=== PATIENT | male | born 1975 | race Caucasian/White ===

== ENCOUNTER 2019-07-16 07:19 | Emergency (ER) | payer MEDICAID, OTHER ==
[~2019-07-16] VITALS: Ht 182.9 cm; Wt 70.0 kg
[~2019-07-16 07:19] MED LIST: CLOT24CR TOP
--- NOTE | 2019-07-16 08:08 | NUR ---
Called [facility]. Case #[id number].
[2019-07-16] MEDS ORDERED: TETanus/Pertussis (Acell)/Diphther VAC/PF (Tdap-Adult) 0.5ml syringe IM ONE (08:45)
[2019-07-16] MEDS ORDERED: LIDOcaine 1% w/EPI 1:200,000 injection 10mL vial IM ONE (08:45)
[2019-07-16] MEDS ORDERED: LIDOcaine 1% W/epiNEPHrine 1:200,000 10ml vial IJ ONE (08:50)
--- NOTE | 2019-07-16 08:50 | NUR ---
pt out to [place] via [place] with [employer]
--- NOTE | 2019-07-16 09:06 | NUR ---
pt returns from [place]
[2019-07-16 10:08] VITALS: BP 128/91
== END 2019-07-16 10:10 | disposition home or self-care (01) ==
LOC: ER 07:19
DX: S01.01XA Laceration without foreign body of scalp, initial encounter (principal); F12.90 Cannabis use, unspecified, uncomplicated; F17.200 Nicotine dependence, unspecified, uncomplicated; Z60.2 Problems related to living alone; Z56.0 Unemployment, unspecified; Y04.2XXA Assault by strike against or bumped into by another person, initial encounter; Y93.89 Activity, other specified; Y92.89 Other specified places as the place of occurrence of the external cause; Y99.8 Other external cause status
CPT/HCPCS: 12002; 70450; 90471; 99284

== ENCOUNTER 2019-07-26 12:01 | Emergency (ER) | payer MEDICAID, OTHER ==
[~2019-07-26] VITALS: Ht 182.9 cm; Wt 102.3 kg
[2019-07-26 12:13] VITALS: BP 117/71
--- NOTE | 2019-07-26 12:43 | NUR ---
3 yash removed from back of head. no bleeding, well aproximated. lokesh well
== END 2019-07-26 13:20 | disposition home or self-care (01) ==
LOC: ER 12:02
DX: S01.01XD Laceration without foreign body of scalp, subsequent encounter (principal); Y04.2XXD Assault by strike against or bumped into by another person, subsequent encounter
CPT/HCPCS: 99281